=== PATIENT | female | born 1960 | race Caucasian/White ===

== ENCOUNTER 2019-05-28 12:34 | Outpatient (CLI) | payer BC ==
[~2019-05-28] VITALS: Ht 162.6 cm; Wt 100.6 kg
[2019-05-28 12:55] VITALS: BP 142/69
[2019-05-28 13:40] LABS: BASOPHILS % (AUTO) 0 % (0-10); EOSINOPHILS # (AUTO) 0.3 10^3/uL (0.0-0.3); EOSINOPHILS % (AUTO) 3 % (0-10); HEMATOCRIT 43 % (35-52); HEMOGLOBIN 13.8 G/DL (11.5-16.0); LYMPHOCYTES # (AUTO) 1.4 X 10^3 (1.0-4.0); LYMPHOCYTES % (AUTO) 15 % (12-44); MEAN CORPUSCULAR HEMOGLOBIN 29 PG (25-34); MEAN CORPUSCULAR HGB CONC 32 G/DL (32-36); MEAN CORPUSCULAR VOLUME 91 FL (80-99); MEAN PLATELET VOLUME 9.5 FL (7.4-10.4); MONOCYTES # (AUTO) 0.7 X 10^3 (0.0-1.0); MONOCYTES % (AUTO) 7 % (0-12); NEUTROPHILS # (AUTO) 7.1 X 10^3 (1.8-7.8); NEUTROPHILS % (AUTO) 75 % (42-75); PLATELET COUNT 416 10^3/uL (130-400); RED CELL DISTRIBUTION WIDTH 13.9 % (10.0-14.5); WHITE BLOOD COUNT 9.5 10^3/uL (4.3-11.0)
[2019-05-28 13:52] LABS: PROTHROMBIN TIME PATIENT 13.7 SEC (12.2-14.7)
[2019-05-28 13:57] LABS: BILIRUBIN,URINE NEGATIVE (NEGATIVE); CLARITY,URINE CLEAR; COLOR,URINE YELLOW; GLUCOSE, URINE (UA) NEGATIVE (NEGATIVE); KETONES,URINE 1+ (NEGATIVE); LEUKOCYTE ESTERASE ,URINE 1+ (NEGATIVE); NITRITE,URINE NEGATIVE (NEGATIVE); PH,URINE 5 (5-9); PROTEIN,URINE 1+ (NEGATIVE); UROBILINOGEN,URINE 1 MG/DL (NORMAL)
--- NOTE | 2019-05-28 13:57 | Diagnostic Imaging Report ---
INDICATION: preop/pain in left lower leg COMPARISON: None FINDINGS: Frontal and lateral views of the chest demonstrate normal heart size and pulmonary vascularity. The lungs are clear. There are no signs of infiltrate, pleural effusions or pneumothoraces. The visualized osseous structures show no acute abnormalities. IMPRESSION: 1. No acute process. No signs of infiltrates, effusions or pneumothoraces. Dictated by: Dictated on workstation # [id number]
[2019-05-28 13:58] LABS: BUN/CREATININE RATIO 31; CALCIUM 9.3 MG/DL (8.5-10.1); CARBON DIOXIDE 23 MMOL/L (21-32); CHLORIDE 106 MMOL/L (98-107); CREATININE SERUM 0.65 MG/DL (0.60-1.30); GFR ESTIMATED > 60; GLUCOSE 80 MG/DL (70-105); SODIUM 140 MMOL/L (135-145)
[2019-05-28 14:11] LABS: BACTERIA,URINE NEGATIVE /HPF; CALCIUM OXALATE CRYSTALS,UR LARGE /LPF; WBC,URINE RARE /HPF
[2019-05-28] MEDS ORDERED: TRAM50TA2 PO (16:20)
[2019-05-28] MEDS ORDERED: NAPR-915 PO (16:20)
[2019-05-28] MEDS ORDERED: PRAV40TA2 PO (16:20)
[2019-05-28] MEDS ORDERED: EPIN0.3P2 IJ (16:20)
[2019-05-28] MEDS ORDERED: CETI10TA20 PO (16:20)
[2019-05-28] MEDS ORDERED: LETR2.5T5 PO (16:20)
[2019-05-28] MEDS ORDERED: ESCI20TA45 PO (16:20)
[2019-05-28] MEDS ORDERED: LEVO175T5 PO (16:20)
[2019-05-28] MEDS ORDERED: TOLT2CAP21 PO (16:20)
[2019-05-28] MEDS ORDERED: ARIP10TA17 PO (16:20)
[2019-05-28] MEDS ORDERED: PHEN37.53 PO (16:20)
[2019-05-28] MEDS ORDERED: RT-ALBUINH INH (16:20)
[2019-05-29] MEDS ORDERED: CETI1TAB61 PO (15:21)
[2019-05-29] MEDS ORDERED: FLUT16SP22 NS (16:00)
== END 2019-05-28 13:30 | disposition home or self-care (01) ==
LOC: PREOP 12:34
PROVIDERS: ATTEND Orthopaedic Surgery
DX: Z01.812 Encounter for preprocedural laboratory examination (principal); Z01.811 Encounter for preprocedural respiratory examination; M17.12 Unilateral primary osteoarthritis, left knee; R53.83 Other fatigue; Z88.1 Allergy status to other antibiotic agents; Z22.322 Carrier or suspected carrier of Methicillin resistant Staphylococcus aureus
CPT/HCPCS: 36415; 71046; 80048; 81000; 85025; 85610; 86850; 86900; 86901; 87081

== ENCOUNTER 2019-06-04 06:00 | Inpatient (IN) | payer BC ==
--- NOTE | 2019-05-29 15:54 | NUR ---
ANABEL SENT OVER A COPY OF THE PATIENTS MED LIST SHE PROVIDED AND I CALLED AND HAS A LIST OF RECENTLY SOLD MEDICATIONS FAXED OVER FROM [facility]. I CALLED THE PATIENT TO VERIFY THE MEDS THAT ARE PAST DUE FOR REFILL AND SHE STATES SHE IS STILL TAKING THEM SHE JUST NEEDS TO REFILL THEM. JAZZ FILLED: 05-27-19 ESCITALOPRAM 20MG DAILY 05-27-19 LEVOTHYROXINE 175MCG DAILY 05-27-19 PHENTERMINE 37.5MG DAILY 05-15-19 VENTOLIN 2 PUFFS Q4H (PRN) 05-07-19 NAPROXEN 500MG BID 04-29-19 TRAMADOL 50MG 2 TABS Q6H (PRN) 04-26-19 FLONASE DAILY (NOT ON HER LIST, I ADDED IT PRN) 03-25-19 ARIPIPRAZOLE 10MG DAILY #90 03-12-19 ZYRTEC D 12 HOURS Q12 HOURS #12 (STATES SHE TAKES NEEDED, DOES NOT TAKE PLAIN ZYRTEC THAT IS ON HER MED LIST) 01-15-19 TOLTERODINE ER 3MG DAILY #90 01-01-19 LETROZOLE 2.5MG DAILY #90 11-28-18 PRAVASTATIN 40MG DAILY #90 SHE ALSO REPORTS HAVING AN EPIPEN NEEDED
[~2019-06-04] VITALS: Ht 162.6 cm; Wt 100.6 kg
[2019-06-04] VITALS (11 sets, daily range): BP systolic 107–138; BP diastolic 57–76
[~2019-06-04 06:00] MED LIST: ARIP10TA17 PO; CETI10TA20 PO; CETI1TAB61 PO; EPIN0.3P2 IJ; ESCI20TA45 PO; FLUT16SP22 NS; LETR2.5T5 PO; LEVO175T5 PO; NAPR-915 PO; PHEN37.53 PO; PRAV40TA2 PO; RT-ALBUINH INH; TOLT2CAP21 PO; TRAM50TA2 PO
[2019-06-04] MEDS ORDERED: GABAPENTIN 600 MG (NEURONTIN) TAB PO ONE (06:30)
[2019-06-04] MEDS ORDERED: DEXAMETHASONE 4 MG/ML SDV (DECADRON) IV ONE (06:30)
[2019-06-04] MEDS ORDERED: ONDANSETRON 4 MG/2 ML (SDV) Z0FRAN IVP ONE (06:30)
[2019-06-04] MEDS ORDERED: ceFAZolin 2 GM IV Premixed 50 ML IV ONE (06:30)
[2019-06-04] MEDS ORDERED: CELECOXIB 100 MG (CeleBREX) CAP PO ONE (06:30)
[2019-06-04] MEDS ORDERED: BUPIVACAINE 0.25% 30 ML (SENSORCAINE) VIAL ONE (06:37)
[2019-06-04] MEDS ORDERED: LIDOCAINE PF 2% 5 ML (XYLOCAINE) VIAL ONE (06:43)
[2019-06-04] MEDS ORDERED: MIDAZOLAM 2 MG/2 ML (VERSED) VIAL ONE (06:45)
[2019-06-04] MEDS ORDERED: GENTAMICIN 40 MG/ML 2 ML INJ SDV ONE (06:51)
[2019-06-04] MEDS ORDERED: NEO/POLY/BAC (NEOSPORIN) OINT 15 GM TUBE ONE (06:53)
[2019-06-04] MEDS ORDERED: proPOfol 200 MG/20 ML (DIPRIVAN) VIAL IV ONE (07:25)
[2019-06-04] MEDS ORDERED: fentaNYL INJECTION 100 MCG/2 ML AMP ONE (07:25)
[2019-06-04] MEDS: LACTATED RINGERS 1,000 ML IV PRN ×2 (07:27→08:23)
[2019-06-04] MEDS ORDERED: diphenhydrAMINE 50 MG/ML INJ (BENADRYL) IV PRN (07:30)
[2019-06-04] MEDS ORDERED: RT-ALBUTEROL SULF 2.5 MG/3 ML PRE-MIX VIAL INH PRN (07:30)
[2019-06-04] MEDS ORDERED: ONDANSETRON 4 MG/2 ML (SDV) Z0FRAN IV PRN (07:30)
[2019-06-04] MEDS ORDERED: D5 1/2 NS 1000 ML IV SOLUTION 1,000 ML IV SCH (07:30)
[2019-06-04] MEDS ORDERED: FLUTICASONE NASAL SPRAY (FLONASE) 16 GM BTL NS PRN (07:30)
[2019-06-04] MEDS ORDERED: BISACODYL 10 MG SUPP (DULCOLAX) PR PRN (07:30)
[2019-06-04] MEDS ORDERED: ONDANSETRON 4 MG (ZOFRAN) ORAL DISSOLVE TAB PO PRN (07:30)
[2019-06-04] MEDS ORDERED: SEVOFLURANE (ULTANE) 15 ML INHAL SOLN ONE ×5 (08:35→10:02)
[2019-06-04] MEDS ORDERED: HYDROmorphone 2 MG/ML VIAL (DILAUDID) ONE (08:35)
[2019-06-04] MEDS ORDERED: TRANEXAMIC ACID 100 MG/ML 10 ML INJECTION IV ONE (08:56)
[2019-06-04] MEDS: INTRA-ARTICULAR IU ONE ×8 (09:43→09:46)
--- NOTE | 2019-06-04 10:12 | Progress Note-Post Operative ---
Post-Operative Progess Note Surgeon (s)/Director Experimental Medicine (s) Surgeon ARCADIO QUEZADA DO Director Experimental Medicine: zoraida Ballard ADJUNCT LATIN PROFESSOR-Rick Pre-Operative Diagnosis Primary Osteoarthritis Left Knee Post-Operative Diagnosis same Procedure & Operative Findings Date of Procedure 06/04/19 Procedure Performed/Findings Left Total Knee Arthroplasty Anesthesia Type General with genicular, Ipacks, Adductor regional nerve block Estimated Blood Loss Estimated blood loss (mL): 150 ml Specimens/Packing Specimens Removed none ARCADIO QUEZADA DO Jun 04, 2019 10:12
--- NOTE | 2019-06-04 10:13 | Progress Note-Pre Operative ---
Pre-Operative Progress Note H&P Reviewed The H&P was reviewed, patient examined and no changes noted. Date Seen by Provider: Jun 04, 2019 Time Seen by Provider: 07:40 Date H&P Reviewed: Jun 04, 2019 Time H&P Reviewed: 07:40 Pre-Operative Diagnosis: Primary Osteoarthritis Left Knee ARCADIO QUEZADA DO Jun 04, 2019 10:13
[2019-06-04] MEDS ORDERED: morphine INJ 10 MG/ML 1ML (SYR OR VIAL) IVP ONE (10:15)
[2019-06-04] MEDS ORDERED: HYDROmorphone 2 MG/ML VIAL (DILAUDID) IV ONE (10:15)
[2019-06-04] MEDS ORDERED: MEPERIDINE (DEMEROL) INJ 50 MG/ML IVP ONE (10:15)
[2019-06-04] MEDS ORDERED: ONDANSETRON 4 MG/2 ML (SDV) Z0FRAN IVP PRN (10:15)
--- NOTE | 2019-06-04 11:10 | NUR ---
Patient to floor at this time via bed. This RN and KARY Jasmine will assume care of this patient at this time.
--- NOTE | 2019-06-04 11:33 | Diagnostic Imaging Report ---
INDICATION: Postoperative total knee arthroplasty. COMPARISON: None available. TECHNIQUE: 2 radiographs of the left knee dated 06/04/2019. FINDINGS: Recent placement of a left total knee arthroplasty is noted with postsurgical subcutaneous emphysema and skin dori in place. No evidence of hardware complication. No acute fracture or dislocation. No destructive osseous process. No suspicious radiopaque foreign body. IMPRESSION: Recent placement of a left total knee arthroplasty without evidence of immediate hardware complication or acute osseous abnormality. Dictated by: Dictated on workstation # [id number]
[2019-06-04] MEDS: TOLTERODINE LA 2 MG (DETROL LA) CAP PO SCH (12:27)
[2019-06-04] MEDS: NAPROXEN 250 MG (NAPROSYN) TABLET PO SCH ×2 (12:27→20:23)
[2019-06-04] MEDS: ENOXAPARIN 40 MG/0.4 ML (LOVENOX) SYR SC SCH (12:27)
[2019-06-04] MEDS ORDERED: PSEUDOEPHEDRINE HCL 30 MG (SUDAFED) TAB PO PRN (12:30)
[2019-06-04] MEDS: ASPIRIN E.C. 81 MG (ECOTRIN) TAB PO SCH (14:32)
[2019-06-04] MEDS: LEVOTHYROXINE 25 MCG (LEVOTHROID) TAB PO SCH (14:47)
[2019-06-04] MEDS: LEVOTHYROXINE 150 MCG (LEVOTHROID) TAB PO SCH (14:47)
[2019-06-04] MEDS: LETROZOLE 2.5 MG (FEMARA) TAB PO SCH (14:47)
[2019-06-04] MEDS: morphine INJ 4 MG/ML 1 ML (VIAL/SYRINGE) IVP PRN (14:50)
[2019-06-04] MEDS: HYDROcodone/APAP 10 MG/325 MG (LORTAB) TAB PO PRN ×2 (14:50→20:23)
[2019-06-04] MEDS: BACLOFEN 10 MG (LIORESAL) TAB PO PRN (14:53)
--- NOTE | 2019-06-04 16:29 | OPERATIVE REPORT ---
DATE OF SERVICE: 06/04/2019 PREOPERATIVE DIAGNOSIS: Primary osteoarthritis, left knee. POSTOPERATIVE DIAGNOSIS: Primary osteoarthritis, left knee. PROCEDURE: Left total knee arthroplasty. SURGEON: Arcadio Quezada DO SALES ESTIMATOR: OLIMPIA Benites. SURGICAL RECREATIONAL FACILITIES MOTEL MANAGER DUTIES: Leroy Ballard, rn surgical pcu was utilized throughout the entire procedure for soft tissue retraction, placement of assistance in placement of total knee implants, wound closure, dressing application and the patient transfer. ANESTHESIA: General with adductor Genicular and iPACK nerve block. ESTIMATED BLOOD LOSS: 150 mL. COMPLICATIONS: None. INDICATIONS AND FINDINGS: The patient is a 59-year-old female seen with chief complaint of progressive left knee pain, nonresponsive to conservative treatment and the patient's x-rays demonstrated a varus deformity of the left knee with severe collapse of the medial compartment as well the patellofemoral compartment. The patient was taken to surgery where a total knee arthroplasty was performed on the left without complication utilizing the [employer]guard total knee system with a press fit 62.5 mm femoral component, a 67 mm fixed I-beam cemented tibial component, a 10 mm anterior stabilized tibial bearing implant with a 31 mm 3-pronged all-polyethylene cemented thin patellar component. PROCEDURE IN DETAIL: The patient was seen by anesthesia preoperatively and under ultrasound guidance, a adductor genicular and IPACKS nerve block was performed on the left to decrease postoperative pain and decrease amount of medication required during the surgical procedure. The patient was transferred to the operating room where general inhalation anesthetic was administered. A well-padded pneumatic tourniquet was placed about the upper aspect of left thigh. A ChloraPrep and sterile drape of left lower extremity was performed. The left leg was elevated, exsanguinated and the tourniquet was inflated to 300 mmHg pressure. An anterior longitudinal midline incision was made over the anterior surface of the knee. The incision was deepened through a medial parapatellar incision. Subperiosteal dissection was used to expose the proximal medial tibia. The patella was subluxed laterally. Osteophytes from the distal femur were removed with a bone rongeur. A tugboat pilot hole was then drilled in the distal femur and intramedullary hai was inserted utilizing a 5-degree cutting angle, a distal femoral cutting guide was assembled and a distal femoral osteotomy was completed. The distal femur was sized to a 62.5 mm femoral component and 4-way cutting guide was assembled. Anterior, posterior and chamfer cuts were then made. The tibia was subluxed anteriorly. Remnants of the anterior cruciate ligament as well as the medial and lateral menisci were excised. A tugboat pilot hole was then drilled in the proximal tibia. An intramedullary hai was inserted measuring off the exposed bone of the proximal medial tibia. A proximal tibial cutting guide was assembled and a proximal tibial osteotomy was completed. The knee was taken into full extension. The patient lacked a very slight amount of full extension. The rasping tool was used to further smooth the proximal tibia. Following this, the knee could be fully extended with no varus valgus instability. Osteophytes from the patellar reamer were removed with a bone rongeur. The patella measured 19 mm anterior to posterior diameter 6 mm of bone was resected through a cutting guide, patella was drilled through the drill guide. Provisional components were inserted. The knee was cycled through a range of motion. Rotation of the tibial component was noted and marked on the proximal tibia. The proximal tibia was then broached to accept the I-beam stem portion of the tibial implant. The bony surfaces were irrigated extensively with normal saline solution. Bone cement was then mixed. This was pressurized in the proximal tibia. The tibial component was cemented in place. The femoral component was press fit in place. The knee was taken into full extension with a provisional tibial bearing implant. The patellar component was cemented in place and held with a clamp. Excess cement was removed. The tourniquet was released. Hemostasis was obtained with electrocautery. The cement was allowed to set. The knee was then examined again with the patient demonstrating full stability both in flexion and extension with a 10 mm spacer. The provisional tibial bearing implant was removed. The knee was additionally irrigated extensively with normal saline solution containing gentamicin. The 10 mm anterior stabilized tibial bearing implant was then inserted and locked anteriorly with a locking bar. The knee was placed in 90 degrees of flexion. The medial retinaculum was closed with multiple interrupted vnpdno-zj-brvmh sutures of #1 Vicryl reinforced with a running suture of #1 Stratafix. Subcutaneous tissues were closed with 0 and 2-0 Vicryl suture. The skin was closed with stainless steel dori and Adaptic Neosporin bulky dressing was placed about the left knee. The patient was awakened and was transported to postop recovery with anesthesia personnel present in satisfactory condition. Job ID: [id number] DocumentID: [id number] Dictated Date: 06/04/2019 11:13:28 Amphibian Crewmember Date: 06/04/2019 16:29:03 Dictated By: ARCADIO QUEZADA DO
[2019-06-04] MEDS: ceFAZolin 2 GM IV Premixed 50 ML IV SCH ×2 (16:40→23:41)
[2019-06-04] MEDS: SENNA W/DOCUSATE (SENOKOT S) TABLET PO SCH (20:22)
[2019-06-05] VITALS (7 sets, daily range): BP systolic 117–148; BP diastolic 63–78
[2019-06-05] MEDS: LEVOTHYROXINE 150 MCG (LEVOTHROID) TAB PO SCH (04:52)
[2019-06-05] MEDS: LEVOTHYROXINE 25 MCG (LEVOTHROID) TAB PO SCH (04:52)
[2019-06-05] MEDS: HYDROcodone/APAP 10 MG/325 MG (LORTAB) TAB PO PRN ×3 (04:53→18:01)
[2019-06-05 06:34] LABS: HEMOGLOBIN 12.5 G/DL (11.5-16.0); MEAN PLATELET VOLUME 9.7 FL (7.4-10.4); RED CELL DISTRIBUTION WIDTH 13.5 % (10.0-14.5); WHITE BLOOD COUNT 16.1 10^3/uL (4.3-11.0)
[2019-06-05 07:01] LABS: BUN/CREATININE RATIO 22; CALCIUM 9.2 MG/DL (8.5-10.1); CARBON DIOXIDE 24 MMOL/L (21-32); CHLORIDE 104 MMOL/L (98-107); CREATININE SERUM 0.65 MG/DL (0.60-1.30); GFR ESTIMATED > 60; GLUCOSE 105 MG/DL (70-105); POTASSIUM 4.5 MMOL/L (3.6-5.0); SODIUM 139 MMOL/L (135-145)
--- NOTE | 2019-06-05 07:30 | Progress Note ---
Subjective Date Seen by a Provider: Jun 05, 2019 Time Seen by a Provider: 07:28 Subjective/Events-last exam POD 1 s/p left TKA. No complaints at this time, pain controlled. She has been up 4x to restroom and reports her knee feels stable. Objective Exam Vital Signs Date Time Temp Pulse Resp B/P (MAP) Pulse Ox O2 Delivery O2 Flow Rate FiO2 06/05/19 04:00 36.9 73 18 148/68 (94) 99 Room Air 06/05/19 00:00 36.8 71 18 130/63 (85) 99 Room Air 06/04/19 21:00 Room Air 06/04/19 20:45 36.6 77 20 122/74 (90) 99 Room Air 06/04/19 18:38 Room Air 06/04/19 16:25 36.8 83 20 127/61 (83) 95 Room Air 06/04/19 15:52 Room Air 06/04/19 12:00 36.3 84 20 138/65 (89) 95 Room Air 06/04/19 11:10 Room Air 06/04/19 11:10 37.3 20 125/62 (83) 95 Room Air 06/04/19 11:00 Room Air 06/04/19 11:00 22 125/62 (83) 95 Room Air 06/04/19 10:50 20 120/64 (82) 99 Room Air 06/04/19 10:45 OxyMask 3 06/04/19 10:40 18 124/68 (86) 99 OxyMask 3 06/04/19 10:35 OxyMask 3 06/04/19 10:30 18 127/71 (89) 100 OxyMask 3 06/04/19 10:20 20 111/71 (84) 98 OxyMask 6 06/04/19 10:20 OxyMask 6 06/04/19 10:12 OxyMask 10 06/04/19 10:12 37 12 107/57 (74) 99 OxyMask 10 I & O 06/05/19 07:00 Intake Total 3420 ml Balance 3420 ml Capillary Refill : Less Than 3 Seconds General Appearance: No Apparent Distress Respiratory: No Accessory Muscle Use, No Respiratory Distress Extremity: Normal Capillary Refill, Normal Inspection, No Calf Tenderness, No Pedal Edema Neurologic/Psychiatric: Alert, Oriented x3, No Motor/Sensory Deficits, Normal Mood/Affect Skin: Normal Color, Warm/Dry (dressing left knee CDI) Results Lab Laboratory Tests 06/05/19 05:30: White Blood Count 16.1H, Red Blood Count 4.27L, Hemoglobin 12.5, Hematocrit 39, Mean Corpuscular Volume 92, Mean Corpuscular Hemoglobin 29, Mean Corpuscular Hemoglobin Concent 32, Red Cell Distribution Width 13.5, Platelet Count 411H, Mean Platelet Volume 9.7, Sodium Level 139, Potassium Level 4.5, Chloride Level 104, Carbon Dioxide Level 24, Anion Gap 11, Blood Urea Nitrogen 14, Creatinine 0.65, Estimat Glomerular Filtration Rate > 60, BUN/Creatinine Ratio 22, Glucose Level 105, Calcium Level 9.2 Assessment/Plan Assessment/Plan Assess & Plan/Chief Complaint A: s/p left TKA P: Continue current treatment, plan to DC to home tomorrow with home healthcare physical therapy 5x/week x 2 weeks. Consult perinatal social worker for DC planning. EMMANUELLE NATHAN APRN Jun 05, 2019 07:30
--- NOTE | 2019-06-05 07:36 | D/C HH Face to Face Order ---
D/C Face to Face Orders Reconcile Patient Problems Problems Reviewed?: Yes Instructions for Patient Via [facility], Patient Instructions/FollowUp: f/u 2 weeks in [place] office WBAT with walker remove dori per home health in 7 days then apply steri strips physical therapy 5x/week x 2 weeks bilateral LJ aragon [facility] care unit Physician to follow Patient: Dr. Brown Discharge Diet for Home: No Restrictions Patient Problems: primary OA left knee s/p left TKA debility Goals for Patient: increase strength and ROM in left knee independence with ADLs Patient Data-Allergies,Ht & Wt Patient Allergies: Coded Allergies: sulfamethoxazole (Verified Allergy, Unknown, Rash, 05/28/19) trimethoprim (Verified Allergy, Unknown, Rash, 05/28/19) Home Health Need/Face to Face Date of Face to Face: Jun 05, 2019 Clinical Findings: Instability, Muscle weakness, Pain with ambulation, Unsteady gait I have seen Pt orfm-jv-sity: Yes Discharged To: Home Diagnosis/Conditions: primary OA left knee s/p left TKA debility Patient is Homebound due to: Miladys fall risk due to instabilty, Pain w/ambulation Homebound Status Due to the above stated illness, injury or surgical procedure (medical condition or diagnosis) and associated clinical findings, the patient is homebound because of his/her inability to leave home except with aid of a supportive device and/or person AND leaving the home requires a considerable and taxing effort or is medically contraindicated. Pt req the following assistanc: Walker Home Health Nursing Orders Home Health Services Order: Nursing Services, Physical Therapy-Evaluate & Treat physical therapy 5x/week x 2 weeks nursing to remove dori and appy steri strips on 06/13 Home Health Infusion Therapy Line Start Date: Jun 04, 2019 Therapy Orders Therapy Orders: Physical Therapy Therapy Specific Orders: Gait training, Increase strength/endurance, Restore ROM Certify Stmt I certify that this patient is under my care and that I, a nurse practitioner or a physician; a hospital aides and assistants teacher working with me, had a face to face encounter that - meets the physician face to face encounter requirements with this patient as dated. EMMANUELLE NATHAN APRN Jun 05, 2019 07:36
--- NOTE | 2019-06-05 07:38 | Anesthesia-General Post-Op ---
General Patient Condition Mental Status/LOC: Same as Preop Cardiovascular: Satisfactory Nausea/Vomiting: Absent Respiratory: Satisfactory Pain: Controlled Complications: Absent Post Op Complications Complications None Follow Up Care/Instructions Patient Instructions None needed. Anesthesia/Patient Condition Patient Condition Patient is doing well, no complaints, stable vital signs, no apparent adverse anesthesia problems. No complications reported per nursing. TIKA EASON CRNA Jun 05, 2019 07:38
[2019-06-05] MEDS: ASPIRIN E.C. 81 MG (ECOTRIN) TAB PO SCH (08:11)
[2019-06-05] MEDS: TOLTERODINE LA 2 MG (DETROL LA) CAP PO SCH (08:11)
[2019-06-05] MEDS: NAPROXEN 250 MG (NAPROSYN) TABLET PO SCH ×2 (08:12→21:33)
[2019-06-05] MEDS: LETROZOLE 2.5 MG (FEMARA) TAB PO SCH (08:12)
--- NOTE | 2019-06-05 08:43 | Physical Therapy Evaluation ---
PT Evaluation-General Medical Diagnosis Admission Date Jun 04, 2019 at 06:00 Medical Diagnosis: left TKA Onset Date: Jun 04, 2019 Therapy Diagnosis Therapy Diagnosis: impaired mobility, strength, endurance, ROM Precautions Precautions/Isolations: Fall Prevention, Standard Precautions Weight Bear Status Right Lower Extremity: Right Full Weight Bearing Left Lower Extremity: Left Weight Bearing/Tolerated Referral Physician: Leroy Ballard Reason for Referral: Evaluation/Treatment Social History Home: Single Level Current Living Status: Other Family Entry Into Home: Stairs Without Railing PT Steps Into Home: 2 Prior Prior Level of Function SCALE: Activities may be completed with or without assistive devices. 5-Wloreujxnr-mjsudui completes the activity by him/herself with no assistance from a helper. 5-Set-up or Clean-up Assistance-helper sets up or cleans up; patient completes activity. [place] assists only prior to or following the activity. 4-Supervision or Touching Assistance-helper provides verbal cues and/or touching/steadying and/or contact guard assistance as patient completes activity. Assistance may be provided throughout the activity or intermittently. 3-Partial/Moderate Assistance-helper does LESS THAN HALF the effort. [place] lifts, holds or supports trunk or limbs, but provides less than half the effort. 2-Substantial/Maximal Assistance-helper does MORE THAN HALF the effort. [place] lifts or holds trunk or limbs and provides more than half the effort. 2-Ngpdgjtyz-tblgyt does ALL the effort. Patient does none of the effort to complete the activity. Or, the assistance of 2 or more helpers is required for the patient to complete the activity. If activity was not attempted, code reason: 7-Patient Refused. 9-Not Applicable-not attempted and the patient did not perform the activity before the current illness, exacerbation or injury. 10-Not Attempted due to Environmental Limitations-(lack of equipment, weather restraints, etc.). 88-Not Attempted due to Medical Conditions or Safety Concerns. Bed Mobility: 6 Transfers (B,C,W/C): 6 Gait: 6 Stairs: 6 Indoor Mobility (Ambulation): Independent Stairs: Independent PT Evaluation-Current Subjective Patient in bed pre tx, agrees to PT, has very little pain. Pt/Family Goals to be independent at home Objective Patient Orientation: Person, Place, Situation Attachments: SCD's, Polar Pack ROM/Strength ROM Lower Extremities left knee extension +7 degrees, flexion 70 degrees Strength Lower Extremities NT Sensory Vision: Wears Glasses Hearing: Functional Sensation Right Lower Extremit: Intact Sensation Left Lower Extremity: Impaired Sensation Lower Extremities some numbness inferior to knee on the left side Transfers Roll Left to Right (QC): 4 Sit to Lying (QC): 4 Lying to Sitting/Side of Bed(Q: 4 Sit to Stand (QC): 4 Patient performs bed mobility and supine <-> sit with SBA, sit <-> stand with CGA, cues for hand placement and positioning. Gait Does the Patient Walk?: Yes Mode of Locomotion: Walk Anticipated Mode of Locomotion: Walk Walk 10 feet (QC): 4 Walk 50 ft with 2 Turns(QC): 4 Walk 150 ft (QC): 4 Distance: 180' Gait Assistive Device: FWW Comments/Gait Description Patient ambulates slowly but steady, antalgic, slightly flexed left knee, no full extension Balance Sitting Static: Normal Sitting Dynamic: Normal Standing Static: Good Standing Dynamic: Good Treatment Left side total knee protocol x10 (AP, QS, HS, SAQ, SLR), CPM placed and fit to leg and set to 60/-2. Assessment/Needs Patient has impaired mobility, strength, endurance, ROM. Patient has some nu mbness in her left leg still and does not have full extension. Patient in bed post tx with nurse call, phone, tray, CPM donned, SCD's and [facility] care on. Rehab Potential: Fair PT Senior Care Goals Imaging Manager Goals PT Senior Care Goals Time Frame: Jun 12, 2019 Sit to Lying (QC): 6 Lying-Sitting on Side/Bed(QC): 6 Sit to Stand (QC): 4 (SBA) Roll Left to Right (QC): 6 Chair/Oys-hz-Fjwyt Xfer(QC): 4 (SBA) Distance: 200' Walk 10 feet (QC): 4 (SBA) Walk 50ft with 2 Turns (QC): 4 (SBA) Walk 150 ft (QC): 4 (SBA) Gait Assistive Device: FWW # of Steps: 4 1 Step (curb) (QC): 4 (CGA) 4 Steps (QC): 4 (CGA) PT Plan Problem List Problem List: Activity Tolerance, Functional Strength, Safety, Balance, Gait, Transfer, Bed Mobility, ROM Treatment/Plan Treatment Plan: Continue Plan of Care Treatment Plan: Bed Mobility, Education, Functional Activity Norma, Functional Strength, Gait, Safety, Therapeutic Exercise, Transfers Treatment Duration: Jun 12, 2019 Frequency: 11 times per week Estimated Hrs Per Day: .25 hour per day Patient and/or Family Agrees t: Yes Safety Risks/Education Patient Education: Gait Training, Transfer Techniques, Correct Positioning, Safety Issues Teaching Recipient: Patient Teaching Methods: Demonstration, Discussion Response to Teaching: Reinforcement Needed Discharge Recommendations Plan Patient will perform bed mobility and transfer training, balance and endurance training, functional strengthening, stair training, gait training, and education, to improve functional mobility and independence at home. Therapy Discharge Recommendati: Other, See Comments (home with family) Time/GCodes Time In: 0810 Time Out: 0835 Total Billed Treatment Time: 25 Total Billed Treatment 1 visit AKI 15' GT 10' MARLO COOLEY PT Jun 05, 2019 08:43
[2019-06-05] MEDS ORDERED: LORATADINE (CLARITIN) 10 MG TAB PO PRN (09:00)
--- NOTE | 2019-06-05 09:43 | Occ Therapy Progress Note ---
Therapy Progress Note OT order received, chart reviewed. Pt. had just got back to bed and has CPM on. Would rather work with OT later. OT to come back at later time this afternoon. [id number] 1, visit AMARIS MORRIS OT Jun 05, 2019 09:43
[2019-06-05] MEDS: BACLOFEN 10 MG (LIORESAL) TAB PO PRN ×2 (11:51→19:54)
[2019-06-05] MEDS: ENOXAPARIN 40 MG/0.4 ML (LOVENOX) SYR SC SCH (11:51)
[2019-06-05] MEDS ORDERED: diphenhydrAMINE 25 MG TAB (BENADRYL) PO PRN (13:30)
--- NOTE | 2019-06-05 14:06 | Physical Therapy Daily Note ---
PT Daily Note-Current Subjective Pt sitting up in bed upon arrival. Pt agrees to PT for ambulation. Pain Numeric Pain Scale: 5-Moderate Pain Location: Left Location Body Site: Knee Pain Description: Ache, Tightness Comment: Pt has had pain med previously, too early to have more. Mental Status Patient Orientation: Person, Place, Time, Situation Attachments: SCD's, Polar Pack Transfers SCALE: Activities may be completed with or without assistive devices. 7-Soqkhbuoet-skynela completes the activity by him/herself with no assistance from a helper. 5-Set-up or Clean-up Assistance-helper sets up or cleans up; patient completes activity. [place] assists only prior to or following the activity. 4-Supervision or Touching Assistance-helper provides verbal cues and/or touching/steadying and/or contact guard assistance as patient completes activity. Assistance may be provided throughout the activity or intermittently. 3-Partial/Moderate Assistance-helper does LESS THAN HALF the effort. [place] lifts, holds or supports trunk or limbs, but provides less than half the effort. 2-Substantial/Maximal Assistance-helper does MORE THAN HALF the effort. [place] lifts or holds trunk or limbs and provides more than half the effort. 1-Gbxqcwvge-yvgbkx does ALL the effort. Patient does none of the effort to complete the activity. Or, the assistance of 2 or more helpers is required for the patient to complete the activity. If activity was not attempted, code reason: 7-Patient Refused. 9-Not Applicable-not attempted and the patient did not perform the activity before the current illness, exacerbation or injury. 10-Not Attempted due to Environmental Limitations-(lack of equipment, weather restraints, etc.). 88-Not Attempted due to Medical Conditions or Safety Concerns. Roll Left to Right (QC): 6 Sit to Lying (QC): 6 Sit to Stand (QC): 6 Chair/Mal-dy-Xxoxq Xfer(QC): 6 Bed to/from Chair: 6 Weight Bearing Right Lower Extremity: Right Full Weight Bearing Left Lower Extremity: Left Weight Bearing/Tolerated Gait Training Does the Patient Walk?: Yes Gait: 6 Distance: 250' x2 Walk 10 feet (QC): 6 Walk 50 ft with 2 Turns(QC): 6 Walk 150 ft (QC): 6 Gait Persons Needed: 1 Gait Assistive Device: FWW Pt walks with slightly stiff gait but is improving with WB. Wheelchair Training Does the Pt Use a Wheelchair?: No Treatments Pt transfers from bed to standing to use restroom. Pt then ambulates in hallway before returning to room to rest. COMPUTER AIDED DESIGN DRAFTER puts SDCs and polar pack back on pt. Pt asks for CPM after dinner. Pt has all needs mt, call light in hand. Assessment Current Status: Good Progress Pt's ambulation is improving including pain and activity tolerance. PT Information Systems Consultant Goals Detention Goals PT Information Systems Consultant Goals Time Frame: Jun 12, 2019 Sit to Lying (QC): 6 Lying-Sitting on Side/Bed(QC): 6 Sit to Stand (QC): 4 Roll Left to Right (QC): 6 Chair/Khl-ap-Hwoli Xfer(QC): 4 Distance: 200' Walk 10 feet (QC): 4 Walk 50ft with 2 Turns (QC): 4 Walk 150 ft (QC): 4 Gait Assistive Device: FWW # of Steps: 4 1 Step (curb) (QC): 4 4 Steps (QC): 4 PT Plan Problem List Problem List: Activity Tolerance, Functional Strength Treatment/Plan Treatment Plan: Continue Plan of Care Treatment Plan: Bed Mobility, Education, Functional Activity Norma, Functional Strength, Gait, Safety, Therapeutic Exercise, Transfers Treatment Duration: Jun 12, 2019 Frequency: 11 times per week Estimated Hrs Per Day: .25 hour per day Patient and/or Family Agrees t: Yes Safety Risks/Education Patient Education: Gait Training, Transfer Techniques, Correct Positioning Teaching Recipient: Patient Teaching Methods: Discussion Response to Teaching: Verbalize Understanding Time/GCodes Time In: 1308 Time Out: 1333 Total Billed Treatment Time: 25 Total Billed Treatment 1, GT (15m) & FA (10m) ALVIN QUEEN PTA Jun 05, 2019 14:06
--- NOTE | 2019-06-05 14:24 | Occupational Therapy Eval ---
OT Evaluation-General/PLF Medical Diagnosis Admission Date Jun 04, 2019 at 06:00 Medical Diagnosis: left TKA Onset Date: Jun 04, 2019 Therapy Diagnosis Therapy Diagnosis: Decreased ADL skills Precautions Precautions/Isolations: Fall Prevention, Standard Precautions Safety Interventions: None Weight Bear Status Weight Bearing Restriction: Weight Bearing/Tolerated Referral Physician: Leroy Ballard Referral Reason: Activity Tolerance, Self Care, Evaluation/Treatment, Strengthening/ROM Medical History Reviewed History: Yes Social History Home: Single Level Current Living Status: Other Family (son) Entry Into Home: Stairs Without Railing Steps Into Home: 2 ADL-Prior Level of Function SCALE: Activities may be completed with or without assistive devices. 3-Ryuqbgjzia-zyfjmxd completes the activity by him/herself with no assistance from a helper. 5-Set-up or Clean-up Assistance-helper sets up or cleans up; patient completes activity. [place] assists only prior to or following the activity. 4-Supervision or Touching Assistance-helper provides verbal cues and/or touching/steadying and/or contact guard assistance as patient completes activity. Assistance may be provided throughout the activity or intermittently. 3-Partial/Moderate Assistance-helper does LESS THAN HALF the effort. [place] lifts, holds or supports trunk or limbs, but provides less than half the effort. 2-Substantial/Maximal Assistance-helper does MORE THAN HALF the effort. [place] lifts or holds trunk or limbs and provides more than half the effort. 1-Vczhaxfcl-oviqqx does ALL the effort. Patient does none of the effort to complete the activity. Or, the assistance of 2 or more helpers is required for the patient to complete the activity. If activity was not attempted, code reason: 7-Patient Refused. 9-Not Applicable-not attempted and the patient did not perform the activity before the current illness, exacerbation or injury. 10-Not Attempted due to Environmental Limitations-(lack of equipment, weather restraints, etc.). 88-Not Attempted due to Medical Conditions or Safety Concerns. ADL PLOF Comments Pt. was independent with daily tasks. Works at [employer]. States that she is on her feet a lot. Self Care: Independent Functional Cognition: Independent DME/Equipment: Tub/Shower Occupation: Works at [employer] [address] Self: Yes OT Current Status Subjective No pain reported. Appearance Pt. in bed. Agrees to work with OT. Mental Status/Objective Patient Orientation: Person, Place, Time, Situation Current Upper Extremity ROM WFL Upper Extremity Strength WFL ADL-Treatment Lower Body Dressing (QC): 2 On/Off Footwear (QC): 2 Pt. agrees to work with OT. Pt. put HOB into elevated position before transferring supine-sit. Pt. verbalizes understanding that she wont have elevated HOB at home, but states that she will have help. Pt. unable to doff/don slipper socks. Stood with SBA and took several steps using walker to chair in room. OT offered to assist pt. with toileting task, and sponge bath/shower. Pt. states that she does not have to use the bathroom, and that she showered yesterday before surgery, and would rather not now. Pt. is educated on tub/transfer bench, hip kit for dressing, and possible need for toilet tongs if she should have difficulty with this task. Pt. verbalizes understanding. OT to bring in hip kit at later time to practice with pt. and educate for ADL needs. OT put warm blanket on pt. and all needs are met up in chair. Education OT Patient Education: Correct positioning, Modified ADL techniques, Progress toward Goal/Update tx plan, Purpose of tx/functional activities, Reviewed precautions, Rehab process, Transfer techniques Teaching Recipient: Patient Teaching Methods: Demonstration, Discussion Response to Teaching: Verbalize Understanding, Return Demonstration OT Short Term Goals Short Term Goals 1=Demonstrate adherence to instructed precautions during ADL tasks. 2=Patient will verbalize/demonstrate understanding of assistive devices/modifications for ADL. 3=Patient will improve strength/tolerance for activity to enable patient to perform ADL's. OT [facility] Goals Transport Corps Officer Goals Time Frame: Jun 12, 2019 Lower Body Dressing (QC): 5 (Pt. to be educated on AE for LE ADLs and will demonstrate with set up.) On/Off Footwear (QC): 5 Toileting Hygiene (QC): 6 Toilet/Commode Transfer (QC): 6 Additional Goals: 1-Demonstrate ADL Tasks, 2-Verbalize Understanding, 3-ImproveStrength/Norma 1=Demonstrate adherence to instructed precautions during ADL tasks. 2=Patient will verbalize/demonstrate understanding of assistive devices/modifications for ADL. 3=Patient will improve strength/tolerance for activity to enable patient to perform ADL's. OT Education/Plan Problem List/Assessment Assessment: Decreased Activ Tolerance, Impaired I ADL's, Impaired Self-Care Skills Discharge Recommendations Plan/Recommendations: Continue POC Equpiment Recommendations-D/C: Extended Bath Bench, Hip Kit Comment Pt. will need a walker for home. Treatment Plan/Plan of Care Treatment,Training & Education: Yes Patient would benefit from OT for education, treatment and training to promote independence in ADL's, mobility, safety and/or upper extremity function for ADL's. Plan of Care: ADL Retraining, Functional Mobility Treatment Duration: Jun 12, 2019 Frequency: 5 times per week Estimated Hrs Per Day: .5 hour per day Agreement: Yes Rehab Potential: Good Time/GCodes Start Time: 14:00 Stop Time: 14:15 Total Time Billed (hr/min): 15 Billed Treatment Time 1, AMARIS SPENCER OT Jun 05, 2019 14:23
--- NOTE | 2019-06-05 15:47 | NUR ---
CM/SS spoke with the patient about plans upon discharge. Plan: The patient plans to return home with Home health. The patients daughter will be the one transporting her home when the time comes. Home Health: Patient chose [facility] ([phone]) Care in [place], [place]. CM/SS sent over referral information. Still need to to fax over finalized orders when available. DME: The patient chose to use [facility] for a walker. Information has not been sent over yet due to not having orders yet. Will fax when available. Addendum: 06/05/19 at 1601 by MARGI FERREIRA reviewed / approved
[2019-06-05] MEDS: morphine INJ 4 MG/ML 1 ML (VIAL/SYRINGE) IVP PRN (19:54)
[2019-06-05] MEDS: SENNA W/DOCUSATE (SENOKOT S) TABLET PO SCH (21:33)
[2019-06-06] MEDS: HYDROcodone/APAP 10 MG/325 MG (LORTAB) TAB PO PRN ×3 (03:19→11:06)
[2019-06-06 04:35] VITALS: BP 138/74
[2019-06-06 06:09] LABS: HEMOGLOBIN 12.6 G/DL (11.5-16.0); MEAN PLATELET VOLUME 9.3 FL (7.4-10.4); RED CELL DISTRIBUTION WIDTH 13.5 % (10.0-14.5)
[2019-06-06] MEDS: LEVOTHYROXINE 150 MCG (LEVOTHROID) TAB PO SCH (06:21)
[2019-06-06] MEDS: LEVOTHYROXINE 25 MCG (LEVOTHROID) TAB PO SCH (06:21)
[2019-06-06 06:25] LABS: BUN/CREATININE RATIO 26; CALCIUM 8.7 MG/DL (8.5-10.1); CARBON DIOXIDE 22 MMOL/L (21-32); CHLORIDE 104 MMOL/L (98-107); CREATININE SERUM 0.57 MG/DL (0.60-1.30); GFR ESTIMATED > 60; GLUCOSE 98 MG/DL (70-105); POTASSIUM 4.2 MMOL/L (3.6-5.0); SODIUM 137 MMOL/L (135-145)
[2019-06-06] MEDS ORDERED: ASPI-983 PO (06:53)
[2019-06-06] MEDS ORDERED: SENN-20 PO (06:53)
[2019-06-06] MEDS ORDERED: HYDR-3820 PO (06:53)
--- NOTE | 2019-06-06 06:57 | Progress Note ---
Subjective Date Seen by a Provider: Jun 06, 2019 Time Seen by a Provider: 06:55 Subjective/Events-last exam POD 2 s/p left TKA. She is doing well. More pain today than yesterday but that is expected. Overall, no complaints. Ambulated over 150ft yesterday. Objective Exam Vital Signs Date Time Temp Pulse Resp B/P (MAP) Pulse Ox O2 Delivery O2 Flow Rate FiO2 06/06/19 04:35 36.8 82 18 138/74 (95) 94 Room Air 06/05/19 23:49 36.9 87 16 124/69 (87) 95 Room Air 06/05/19 21:00 Room Air 06/05/19 19:50 37.1 82 18 136/78 (97) 97 Room Air 06/05/19 18:17 Room Air 06/05/19 15:45 36.6 77 18 117/70 (86) 98 Room Air 06/05/19 12:00 37.0 83 20 130/78 (95) 97 Room Air 06/05/19 09:00 Room Air 06/05/19 08:40 36.7 71 20 145/67 (93) 97 Room Air I & O 06/06/19 07:00 Intake Total 1270 ml Balance 1270 ml Capillary Refill : Less Than 3 Seconds General Appearance: No Apparent Distress HEENT: PERRL/EOMI Respiratory: No Accessory Muscle Use, No Respiratory Distress Cardiovascular: Regular Rate, Rhythm, Normal Peripheral Pulses Gastrointestinal: non tender, soft Extremity: Normal Capillary Refill, Normal Inspection, No Calf Tenderness, No Pedal Edema Neurologic/Psychiatric: Alert, Oriented x3, No Motor/Sensory Deficits, Normal Mood/Affect Skin: Normal Color, Warm/Dry (dressing left knee CDI) Results Lab Laboratory Tests 06/06/19 05:49: White Blood Count 11.0, Red Blood Count 4.29L, Hemoglobin 12.6, Hematocrit 40, Mean Corpuscular Volume 93, Mean Corpuscular Hemoglobin 29, Mean Corpuscular Hemoglobin Concent 32, Red Cell Distribution Width 13.5, Platelet Count 315, Mean Platelet Volume 9.3, Sodium Level 137, Potassium Level 4.2, Chloride Level 104, Carbon Dioxide Level 22, Anion Gap 11, Blood Urea Nitrogen 15, Creatinine 0.57L, Estimat Glomerular Filtration Rate > 60, BUN/Creatinine Ratio 26, Glucose Level 98, Calcium Level 8.7 Assessment/Plan Assessment/Plan Assess & Plan/Chief Complaint A: s/p left TKA P: Continue current treatment, plan to DC to home tomorrow with home healthcare physical therapy 5x/week x 2 weeks. Consult social media analyst for DC planning. EMMANUELLE NATHAN APRN Jun 06, 2019 06:57
--- NOTE | 2019-06-06 07:01 | Discharge Summary ---
Diagnosis/Chief Complaint Date of Admission Jun 04, 2019 at 06:00 Date of Discharge Discharge Date: Jun 06, 2019 Discharge Time: 1600 Admission Diagnosis Admission Diagnosis Primary OA left knee Discharge Diagnosis Primary OA left knee s/p Left Total Knee Arthroplasty Reason Hospital Visit Scheduled left total knee arthroplasty procedure. Discharge Summary Procedures: Left Total Knee Arthroplasty Consultations none Discharge Physical Examination Allergies: Coded Allergies: sulfamethoxazole (Verified Allergy, Unknown, Rash, 05/28/19) trimethoprim (Verified Allergy, Unknown, Rash, 05/28/19) Vitals & I&Os Vital Signs Date Time Temp Pulse Resp B/P (MAP) Pulse Ox O2 Delivery O2 Flow Rate FiO2 06/06/19 04:35 36.8 82 18 138/74 (95) 94 Room Air 06/04/19 10:45 3 General Appearance: Alert, Oriented X3 HEENT: PERRLA Respiratory: Clear to Auscultation Cardiovascular: Regular Rate Abdominal: Soft, No Tenderness Extremities: No Clubbing, No Cyanosis, Normal Pulses Skin: No Rashes Neuro: Normal Speech, Normal Tone, Sensation Intact Psych/Mental Status: Mental Status NL Hospital Course Was the Problem List Reviewed?: Yes The patient was admitted to the hospital for a left total knee arthroplasty. She was taken to surgery on the date of admission and the procedure was performed without complications. Postoperatively she was maintained on DVT prophylaxis as well as IV antibiotic prophylaxis. She progressed well with physical therapy and she was discharged to home with home healthcare on post op day 2. Pending Labs Laboratory Tests 06/06/19 05:49: White Blood Count 11.0, Red Blood Count 4.29, Hemoglobin 12.6, Hematocrit 40, Mean Corpuscular Volume 93, Mean Corpuscular Hemoglobin 29, Mean Corpuscular Hemoglobin Concent 32, Red Cell Distribution Width 13.5, Platelet Count 315, Mean Platelet Volume 9.3, Sodium Level 137, Potassium Level 4.2, Chloride Level 104, Carbon Dioxide Level 22, Anion Gap 11, Blood Urea Nitrogen 15, Creatinine 0.57, Estimat Glomerular Filtration Rate > 60, BUN/Creatinine Ratio 26, Glucose Level 98, Calcium Level 8.7 Discharge Condition at discharge good Instructions to patient/family Please see electronic discharge instructions given to patient. Discharge Medications Reviewed and agree with Discharge Medication list on patient's Discharge Instruction sheet EMMANUELLE NATHAN APRN Jun 06, 2019 07:01
[2019-06-06] MEDS: BACLOFEN 10 MG (LIORESAL) TAB PO PRN (07:02)
[2019-06-06] MEDS: LETROZOLE 2.5 MG (FEMARA) TAB PO SCH (08:13)
[2019-06-06] MEDS: ENOXAPARIN 40 MG/0.4 ML (LOVENOX) SYR SC SCH (08:13)
[2019-06-06] MEDS: NAPROXEN 250 MG (NAPROSYN) TABLET PO SCH (08:13)
[2019-06-06] MEDS: TOLTERODINE LA 2 MG (DETROL LA) CAP PO SCH (08:13)
[2019-06-06] MEDS: ASPIRIN E.C. 81 MG (ECOTRIN) TAB PO SCH (08:13)
[2019-06-06 08:44] VITALS: BP 136/79
--- NOTE | 2019-06-06 09:13 | NUR ---
prior to a.m. medications 136/79 and pulse was 83
--- NOTE | 2019-06-06 09:27 | Physical Therapy Daily Note ---
PT Daily Note-Current Subjective Patient agrees to PT. Rates left knee pain 7/10 with med issued. Pain Numeric Pain Scale: 7 Location: Left Location Body Site: Knee Pain Description: Acute Mental Status Patient Orientation: Normal For Age Attachments: Polar Pack Transfers SCALE: Activities may be completed with or without assistive devices. 3-Hkhmzgqbll-cbfsodx completes the activity by him/herself with no assistance from a helper. 5-Set-up or Clean-up Assistance-helper sets up or cleans up; patient completes activity. [place] assists only prior to or following the activity. 4-Supervision or Touching Assistance-helper provides verbal cues and/or touching/steadying and/or contact guard assistance as patient completes activity. Assistance may be provided throughout the activity or intermittently. 3-Partial/Moderate Assistance-helper does LESS THAN HALF the effort. [place] lifts, holds or supports trunk or limbs, but provides less than half the effort. 2-Substantial/Maximal Assistance-helper does MORE THAN HALF the effort. [place] lifts or holds trunk or limbs and provides more than half the effort. 4-Dfqumzfdm-xxhtej does ALL the effort. Patient does none of the effort to complete the activity. Or, the assistance of 2 or more helpers is required for the patient to complete the activity. If activity was not attempted, code reason: 7-Patient Refused. 9-Not Applicable-not attempted and the patient did not perform the activity before the current illness, exacerbation or injury. 10-Not Attempted due to Environmental Limitations-(lack of equipment, weather restraints, etc.). 88-Not Attempted due to Medical Conditions or Safety Concerns. Roll Left to Right (QC): 6 Sit to Lying (QC): 6 Sit to Stand (QC): 6 Chair/Kvz-sk-Fzfoz Xfer(QC): 6 Bed to/from Chair: 6 Weight Bearing Right Lower Extremity: Right Full Weight Bearing Left Lower Extremity: Left Weight Bearing/Tolerated Gait Training Does the Patient Walk?: Yes Distance: 300' x 2 Walk 10 feet (QC): 6 Walk 50 ft with 2 Turns(QC): 6 Walk 150 ft (QC): 6 Gait Assistive Device: FWW steady, reciprocal pattern, slightly antalgic Stair Training Stair Training: Handrails/: 1 handrail, uses walker #of Steps: 3 1 Step (curb) (QC): 5 4 Steps (QC): 88 12 Steps (QC): 88 Exercises Supine Ex: Ankle pumps, Quad Set, Heel Slides, Straight leg raise Supine Reps: 15 Seated Therapy Exercises: Long arc quads Seated Reps: 15 Assessment Patient up ad stan in room and will dismiss to home on this date. Patient is progressing with treatment plan. PT [facility] Goals [facility] Goals PT Inspector Salvage Goals Time Frame: Jun 12, 2019 Sit to Lying (QC): 6 Lying-Sitting on Side/Bed(QC): 6 Sit to Stand (QC): 4 Roll Left to Right (QC): 6 Chair/Yqv-qs-Efous Xfer(QC): 4 Distance: 200' Walk 10 feet (QC): 4 Walk 50ft with 2 Turns (QC): 4 Walk 150 ft (QC): 4 Gait Assistive Device: FWW # of Steps: 4 1 Step (curb) (QC): 4 4 Steps (QC): 4 PT Plan Treatment/Plan Treatment Plan: Continue Plan of Care Treatment Plan: Bed Mobility, Education, Functional Activity Norma, Functional Strength, Gait, Safety, Therapeutic Exercise, Transfers Treatment Duration: Jun 12, 2019 Frequency: 11 times per week Estimated Hrs Per Day: .25 hour per day Patient and/or Family Agrees t: Yes Time/GCodes Time In: 805 Time Out: 830 Total Billed Treatment Time: 25 Total Billed Treatment 1 visit EX 14 min FA 11 min JENNIFER OTT PT Jun 06, 2019 09:27
--- NOTE | 2019-06-06 10:37 | Occupational Ther Daily Note ---
OT Current Status-Daily Note Subjective Pt alert, lying in bed. Pt agrees to go over hip kit for lower body dressing though stating "I just was up going to the bathroom." Mental Status/Objective Patient Orientation: Person, Place, Time, Situation Attachments: IV ADL-Treatment Therapy Code Descriptions/Definitions Functional [place] Measure: 0=Not Assessed/NA 4=Minimal Assistance 1=Total Assistance 5=Supervision or Setup 2=Maximal Assistance 6=Modified Barney 3=Moderate Assistance 7=Complete IndependenceSCALE: Activities may be completed with or without assistive devices. 2-Xyuqhkclcp-qjutsai completes the activity by him/herself with no assistance from a helper. 5-Set-up or Clean-up Assistance-helper sets up or cleans up; patient completes activity. [place] assists only prior to or following the activity. 4-Supervision or Touching Assistance-helper provides verbal cues and/or touching/steadying and/or contact guard assistance as patient completes activity. Assistance may be provided throughout the activity or intermittently. 3-Partial/Moderate Assistance-helper does LESS THAN HALF the effort. [place] lifts, holds or supports trunk or limbs, but provides less than half the effort. 2-Substantial/Maximal Assistance-helper does MORE THAN HALF the effort. [place] lifts or holds trunk or limbs and provides more than half the effort. 9-Xsdujebyi-mgwyol does ALL the effort. Patient does none of the effort to complete the activity. Or, the assistance of 2 or more helpers is required for the patient to complete the activity. If activity was not attempted, code reason: 7-Patient Refused. 9-Not Applicable-not attempted and the patient did not perform the activity before the current illness, exacerbation or injury. 10-Not Attempted due to Environmental Limitations-(lack of equipment, weather restraints, etc.). 88-Not Attempted due to Medical Conditions or Safety Concerns. Other Treatment Pt stated that her father had used all the equipment, but had sold them when he had . Pt was able to verbalize understanding of equipment though declined demonstrating understanding. Pt stated that she was able to cleanse self after toileting, does not need toilet tongs. Discussed tub transfer bench and where to purchase. Placed pt in CPM and polar pack on knee. After therapy, pt lying in bed with call light/phone in reach. All needs met in room. Education OT Patient Education: Modified ADL techniques, Use of adapted equipment Teaching Recipient: Patient Teaching Methods: Demonstration, Handout Response to Teaching: Verbalize Understanding, Reinforcement Needed OT Short Term Goals Short Term Goals 1=Demonstrate adherence to instructed precautions during ADL tasks. 2=Patient will verbalize/demonstrate understanding of assistive devices/modifications for ADL. 3=Patient will improve strength/tolerance for activity to enable patient to perform ADL's. OT Instructor Nurse Goals Instructor Nurse Goals Time Frame: Jun 12, 2019 Lower Body Dressing (QC): 5 (Pt. to be educated on AE for LE ADLs and will demonstrate with set up.) On/Off Footwear (QC): 5 Toileting Hygiene (QC): 6 Toilet/Commode Transfer (QC): 6 Additional Goals: 1-Demonstrate ADL Tasks, 2-Verbalize Understanding, 3- ImproveStrength/Norma 1=Demonstrate adherence to instructed precautions during ADL tasks. 2=Patient will verbalize/demonstrate understanding of assistive devices/modifications for ADL. 3=Patient will improve strength/tolerance for activity to enable patient to perform ADL's. OT Education/Plan Problem List/Assessment Assessment: Impaired Self-Care Skills Discharge Recommendations Plan/Recommendations: Continue POC Treatment Plan/Plan of Care Patient would benefit from OT for education, treatment and training to promote independence in ADL's, mobility, safety and/or upper extremity function for ADL's. Plan of Care: ADL Retraining, Functional Mobility Treatment Duration: Jun 12, 2019 Frequency: 5 times per week Estimated Hrs Per Day: .5 hour per day Agreement: Yes Rehab Potential: Good Time/GCodes Start Time: 10:10 Stop Time: 10:35 Total Time Billed (hr/min): 25 Billed Treatment Time 1 visit-FA 2 (25 min) TERENCE BURLESON Jun 06, 2019 10:36
--- NOTE | 2019-06-06 11:35 | NUR ---
CM/SS discharge planning for this day. patient discharging this day and would like [facility] in [place], information sent to them and they were contacted, intake will be scheduled for the next day. Patient is need of a CPM and [employer] was contacted and faxed information. CPM should be delivered this day around 2-3. Patient is also in need of FWW, she would like to use [facility] for FWW. Information for walker sent to them and they will deliver a FWW to the patient's room this day.
[2019-06-06 12:00] VITALS: BP 153/84
[2019-06-06 13:39] VITALS: BP 153/84
--- NOTE | 2019-06-06 14:16 | Physical Therapy Daily Note ---
PT Daily Note-Current Subjective Patient agrees to PT treatment. Reports she will be going home later this date. States she has used CPM 1.5 h today. Pain Numeric Pain Scale: 8 Location: Left Location Body Site: Knee Pain Description: Acute Mental Status Attachments: Polar Pack Transfers SCALE: Activities may be completed with or without assistive devices. 6-Pyvomfnpxg-mvayrhi completes the activity by him/herself with no assistance from a helper. 5-Set-up or Clean-up Assistance-helper sets up or cleans up; patient completes activity. [place] assists only prior to or following the activity. 4-Supervision or Touching Assistance-helper provides verbal cues and/or touching/steadying and/or contact guard assistance as patient completes activity. Assistance may be provided throughout the activity or intermittently. 3-Partial/Moderate Assistance-helper does LESS THAN HALF the effort. [place] lifts, holds or supports trunk or limbs, but provides less than half the effort. 2-Substantial/Maximal Assistance-helper does MORE THAN HALF the effort. [place] lifts or holds trunk or limbs and provides more than half the effort. 0-Eavysmebu-goorlt does ALL the effort. Patient does none of the effort to complete the activity. Or, the assistance of 2 or more helpers is required for the patient to complete the activity. If activity was not attempted, code reason: 7-Patient Refused. 9-Not Applicable-not attempted and the patient did not perform the activity before the current illness, exacerbation or injury. 10-Not Attempted due to Environmental Limitations-(lack of equipment, weather restraints, etc.). 88-Not Attempted due to Medical Conditions or Safety Concerns. Sit to Lying (QC): 6 Sit to Stand (QC): 6 Weight Bearing Right Lower Extremity: Right Full Weight Bearing Left Lower Extremity: Left Weight Bearing/Tolerated Gait Training Distance: 300' Walk 10 feet (QC): 6 Walk 50 ft with 2 Turns(QC): 6 Walk 150 ft (QC): 6 Gait Assistive Device: FWW Step through reciprocal pattern, slightly antalgic. Exercises Supine Ex: Quad Set, Heel Slides, Straight leg raise Supine Reps: 15 Seated Therapy Exercises: Long arc quads Seated Reps: 15 Assessment Patient tolerated treatment well. Patient is able to perform bed mobility and transfers independently with FWW. Patient able to ambulate 300' with FWW with no cues needed. Set patient up with polar pack and CPM 0-80 degrees at conclusion of treatment. Patient is ready to discharge on this date. PT Hot Cell Technician Goals Care Home Goals PT Care Home Goals Time Frame: Jun 12, 2019 Sit to Lying (QC): 6 Lying-Sitting on Side/Bed(QC): 6 Sit to Stand (QC): 4 Roll Left to Right (QC): 6 Chair/Wfx-fp-Spcyo Xfer(QC): 4 Distance: 200' Walk 10 feet (QC): 4 Walk 50ft with 2 Turns (QC): 4 Walk 150 ft (QC): 4 Gait Assistive Device: FWW # of Steps: 4 1 Step (curb) (QC): 4 4 Steps (QC): 4 PT Plan Treatment/Plan Treatment Plan: Discontinue PT, goals met Treatment Plan: Bed Mobility, Education, Functional Activity Norma, Functional Strength, Gait, Safety, Therapeutic Exercise, Transfers Treatment Duration: Jun 12, 2019 Frequency: 11 times per week Estimated Hrs Per Day: .25 hour per day Patient and/or Family Agrees t: Yes Time/GCodes Time In: 1307 Time Out: 1333 Total Billed Treatment Time: 26 Total Billed Treatment 1 visit EX 13 min FA 13 min JENNIFER OTT PT Jun 06, 2019 14:16
--- NOTE | 2019-06-06 14:22 | NUR ---
Initial visit. The pt has no spiritual affiliation. She shared that her sister called her today and plans are for her to leave for home this afternoon. She said she was going to try and get some rest. I offered to close the door for her privacy, for which she thanked me.
[2019-06-06 15:06] VITALS: BP 153/84
--- NOTE | 2019-06-06 15:30 | NUR ---
CM/SS patient was not going to return to home in [place] and was going to stay with son in [facility]. Referral for [facility] RN[facility] and PT sent to [facility] and they will scheduled with the patient.
[2019-06-06 16:00] VITALS: BP 166/79
== END 2019-06-06 17:30 | disposition home health service (06) | DRG 470 ==
LOC: 4TH 06:00 → SURG 06:01 → 4TH 11:16
PROVIDERS: ADMIT Orthopaedic Surgery; ATTEND Orthopaedic Surgery
PROC: 0SRD0J9 Replacement of Left Knee Joint with Synthetic Substitute, Cemented, Open Approach (ICD-10-PCS; principal; 2019-06-04 07:55)
DX: M17.12 Unilateral primary osteoarthritis, left knee (principal); K21.9 Gastro-esophageal reflux disease without esophagitis; E66.9 Obesity, unspecified; F41.9 Anxiety disorder, unspecified; F32.9 Major depressive disorder, single episode, unspecified; E07.9 Disorder of thyroid, unspecified; Z68.38 Body mass index [BMI] 38.0-38.9, adult
CPT/HCPCS: 36415; 73560; 80048; 85027; 86850; 86900; 86901; 94760